=== PATIENT | female | born 1950 ===

== ENCOUNTER 2016-08-10 08:12 | Emergency (ER) | payer MEDICARE, BC ==
[2016-08-10 08:23] VITALS: BP 127/68
--- NOTE | 2016-08-10 08:44 | ED ---
Throat Pain/Nasal Congestion - HPI Summary HPI Summary: 66 yr old female with decreased hearing, left greater than right ear pain, and about two weeks of symptoms. She has pain 5/10, and states her hearing has been worse since onset of symptoms two weeks ago. She was put on plain Amoxicillin but has not gotten better. She has an appointment with Dr Noland, ENT next week. No fever, chills. No headache. No other symptoms. - History of Current Complaint Chief Complaint: UCEar Time Seen by Provider: 08/10/16 08:24 - Allergies/Home Medications Allergies/Adverse Reactions: Allergies Allergy/AdvReac Type Severity Reaction Status Date / Time No Known Allergies Allergy Verified 08/10/16 08:23 PMH/Surg Hx/FS Hx/Imm Hx Previously Healthy: Yes - Surgical History Surgery Procedure, Year, and Place: x3. breast reduction Infectious Disease History: No Infectious Disease History: Denies: Traveled Outside the [place] in Last 30 Days - Social History Alcohol Use: Weekly Substance Use Type: Reports: None Smoking Status (MU): Never Smoked Tobacco Review of Systems Constitutional: Negative Negative: Fever, Chills Positive: Ear Ache Negative: Headache, Weakness, Paresthesia, Numbness, Slurred Speech All Other Systems Reviewed And Are Negative: Yes Physical Exam Triage Information Reviewed: Yes Vital Signs On Initial Exam: Initial Vitals Temp Pulse Resp BP Pulse Ox 98.2 F 86 14 127/68 98 08/10/16 08:17 08/10/16 08:17 08/10/16 08:17 08/10/16 08:17 08/10/16 08:17 Appearance: Positive: Well-Appearing, No Pain Distress, Well-Nourished Skin: Positive: Warm, Dry Head/Face: Positive: Normal Head/Face Inspection Eyes: Positive: Normal, EOMI, [facility] ENT: Positive: TM dull - left, TM red - left, Other - Left TM retracted, and no light relflex. Right ear with small effusion. Respiratory/Lung Sounds: Positive: Clear to Auscultation, Other - normal effort Musculoskeletal: Positive: Normal, Strength/ROM Intact Neurological: Positive: Normal, Sensory/Motor Intact, Alert, Oriented to Person Place, Time, CN Intact II-III, Normal Gait, Speech Normal Psychiatric: Positive: Normal Diagnostics - Vital Signs Vital Signs Temp Pulse Resp BP Pulse Ox 08/10/16 08:17 98.2 F 86 14 127/68 98 - Laboratory Lab Statement: Any lab studies that have been ordered have been reviewed, and results considered in the medical decision making process. EENT Course/Dx - Course Course Of Treatment: 66 yr old with left OM, and effusion right ear. Will Rx with Augmentin. ENT appointment she already has. - Diagnoses Provider Diagnoses: Otitis media Discharge - Discharge Plan Condition: Good Disposition: HOME Prescriptions: Amoxicillin/Clavulanate TAB* [Augmentin TAB 875*] 875 mg PO BID #20 tab Patient Education Materials: Otitis Media (ED) Referrals: Murali Noland MD [Medical Doctor] - 1 Day
== END 2016-08-10 08:55 | disposition home or self-care (01) ==
LOC: UCCORT 08:12
DX: H65.93 Unspecified nonsuppurative otitis media, bilateral (principal)
CPT/HCPCS: 99202; G0463